=== PATIENT | male | born 1990 | race Caucasian/White ===

== ENCOUNTER 2021-03-22 23:41 | Emergency (ER) | payer OTHER ==
[~2021-03-22] VITALS: Ht 177.8 cm; Wt 96.6 kg
[2021-03-23 00:18] LABS: HEMATOCRIT 42.5 % (36.7-47.1); MEAN CORPUSCULAR HEMOGLOBIN 30.4 uug (23.8-33.4); MEAN CORPUSCULAR VOLUME 90.1 fL (73.0-96.2); PLATELET COUNT (AUTO) 246 K/uL (152-348)
[2021-03-23 00:23] LABS: POTASSIUM 3.2 mmol/L (3.5-5.1)
[2021-03-23 00:29] LABS: BILIRUBIN,DIRECT 0.1 mg/dL (0.0-0.2); BILIRUBIN,TOTAL 0.3 mg/dL (0.2-1.0); TOTAL PROTEIN, SERUM 6.9 g/dL (6.4-8.2)
[2021-03-23] MEDS: IV NORMAL SALINE 1000 ML BAG IV ONE (00:29)
[2021-03-23] MEDS ORDERED: THIAMINE HCL 100 MG TABLET ONE (02:14)
[2021-03-23] MEDS: THIAMINE HCL 100 MG TABLET PO ONE (02:28)
[2021-03-23 02:55] VITALS: BP 121/61
== END 2021-03-23 02:45 | disposition home or self-care (01) ==
LOC: ER 23:45
DX: F10.121 Alcohol abuse with intoxication delirium (principal); Y90.8 Blood alcohol level of 240 mg/100 ml or more; E87.6 Hypokalemia; Z88.2 Allergy status to sulfonamides
CPT/HCPCS: 36415; 83735; 85025; A4663; G0480; J7030